=== PATIENT | female | born 1980 | race Caucasian/White ===

== ENCOUNTER 2021-01-16 22:49 | Emergency (ER) | payer OTHER ==
[~2021-01-16] VITALS: Ht 154.9 cm; Wt 81.6 kg
--- NOTE | 2021-01-16 23:03 | NUR ---
Note chauncey in EDM - 01/16/21 at 2325 by HERB PATIENT BIBSELF C/O MINOR FLANK PAIN, "POSSIBLE KIDNEY INFECTION",+URINE SMELLS". PT IS A/OX 4, RR EVEN AND UNLABORED, NO SOB NOTED. PATIENT CONNECTED TO CARDIAC AND POX MONITOR.
--- NOTE | 2021-01-16 23:04 | NUR ---
PT BIBSELF C/O MINOR FLANK PAIN "POSSIBLE KIDNEY INFECTION" "+URINE SMELLS" +REQUESTING FOR INSULIN RX . PT A/OX4. TOLERATING R/A WELL.
--- NOTE | 2021-01-16 23:04 | NUR ---
URINE COLLECTED AND SENT TO LAB
[2021-01-16 23:10] VITALS: BP 151/80
[2021-01-16 23:12] LABS: BILIRUBIN,URINE Negative (NEGATIVE); COLOR,URINE YELLOW (YELLOW); LEUKOCYTE ESTERASE ,URINE Negative (NEGATIVE); NITRITE, URINE Negative (NEGATIVE); PROTEIN,URINE Negative (NEGATIVE); UGLUCOSE 500 MG/DL mg/dL (NEGATIVE)
[2021-01-16 23:15] LABS: BACTERIA,URINE Rare /HPF (None Seen); RBC,URINE NONE SEEN /HPF (0-2); SQUAMOUS EPITHELIAL CELL,UR Few /HPF (None Seen); WBC,URINE NONE SEEN /HPF (0-3)
--- NOTE | 2021-01-16 23:24 | NUR ---
DILAN NOBLES AT PT'S BEDSIDE
[2021-01-16] MEDS ORDERED: INSU100V7 SQ (23:26)
[2021-01-16] MEDS ORDERED: DAPA10TA PO (23:26)
[2021-01-16] MEDS ORDERED: GLYB5TAB7 PO (23:26)
== END 2021-01-16 23:35 | disposition home or self-care (01) ==
LOC: ER 23:10
DX: E11.9 Type 2 diabetes mellitus without complications (principal); R82.90 Unspecified abnormal findings in urine; Z76.0 Encounter for issue of repeat prescription; Z71.1 Person with feared health complaint in whom no diagnosis is made; D64.9 Anemia, unspecified; Z79.4 Long term (current) use of insulin
CPT/HCPCS: 81001; 84703-TC

== ENCOUNTER 2024-12-12 17:22 | Emergency (ER) | payer OTHER ==
[~2024-12-12] VITALS: Ht 152.4 cm; Wt 65.8 kg
[~2024-12-12 17:22] MED LIST: DAPA10TA PO; GLYB5TAB7 PO; INSU100V7 SQ
[2024-12-12 17:39] VITALS: TEMP 97.7
[2024-12-12 19:35] VITALS: BP 116/80; O2SAT 97
== END 2024-12-12 19:29 | disposition home or self-care (01) ==
LOC: ER 17:30
DX: L03.012 Cellulitis of left finger (principal); E11.52 Type 2 diabetes mellitus with diabetic peripheral angiopathy with gangrene; Z87.442 Personal history of urinary calculi
CPT/HCPCS: 73130-TC; 82962-TC